=== PATIENT | male | born 1950 | race Caucasian/White ===

== ENCOUNTER 2023-04-05 20:40 | Emergency (ER) | payer MEDICARE, BC, SELFPAY ==
[2023-04-05 21:01] VITALS: BP 116/66; PULSE 95; RESP 15; TEMP 36.2; O2SAT 98
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
[2023-04-05] MEDS: TETANUS,DIPHTHERIA,AC PERTUSSIS ADULT (0.5 ML) BOOSTRIX IM (22:30)
[2023-04-05] MEDS: CEPHALEXIN 500 MG CAPSULE PO (22:30)
== END 2023-04-05 21:47 | disposition home or self-care (01) ==
PROVIDERS: Emergency Provider Emergency Medicine; PCP Internal Medicine
DX: T20.25XA Burn of second degree of scalp [any part], initial encounter (principal); T31.0 Burns involving less than 10% of body surface; Z23 Encounter for immunization; X02.0XXA Exposure to flames in controlled fire in building or structure, initial encounter
CPT/HCPCS: 90715; 99283; A9270